=== PATIENT | female | born 1960 | race Caucasian/White ===

== ENCOUNTER 2024-04-26 15:27 | Outpatient (AMB) | payer OTHER, SELFPAY ==
--- NOTE | 2024-04-26 15:28 | MHC.OFFWIV ---
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 While every effort has been made to ensure accuracy, oil plant operator errors may have been included. The patient is a 63 year old female who presents to the clinic today with black spot in her vision on the left intermittently for the last month without pain with vision changes. 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 [facility] Social History Patient Tobacco Use Status: Former Tobacco user Review of Systems Const All systems reviewed & are unremarkable except as noted in HPI and below Physical Exam Vital Signs: Last Vital Signs Pulse 84 04/26/24 15:29 BP 124/86 04/26/24 15:29 Pulse Ox 98 04/26/24 15:29 Oxygen Delivery Method Room Air 04/26/24 15:29 BMI result Body Mass Index 36.9 Const General: cooperative, healthy appearing, comfortable, no acute distress and well developed Orientation/consciousness: patient oriented x3 Limitations: no limitations Eyes General: appearance normal, both eyes and all related structures Alignment and Position: alignment normal Periorbital: periorbital findings normal Eyelids: Yes eyelids normal Conjunctivae: conjunctivae normal Sclerae: sclerae normal Corneas: corneas normal Pupils: Equal, round and reactive pupils present EOM: EOMs intact bilaterally Direct Ophthalmoscopy: normal light reflex, no photophobia and no papilledema Resp Effort & Inspection: normal respiratory effort and able to speak in complete sentences Neuro General: patient oriented x3 Cranial nerves: Yes Equal, round and reactive pupils present Assessment & Plan Assessment & Plan (1) Vision changes: Code(s): H53.9 - Unspecified visual disturbance Plan: Gradual symptoms intermittent for the past month, with vision changes, but no his findings and physical examination. Advised Ophthalmology evaluation. Numbers provided to patient for self referral. Patient reports that she will contact the office it, or 1st thing in the morning. Advised follow up with worsening symptoms or failure to resolve. Plan See above for full details and plan. Coding Level of Care Code Est Pt Level 3 (02851) Diagnoses Vision changes H53.9 CPT Codes Vision Screening - Vision Screenin - Vision Screening ([id number]) Vision Screening Right Eye: 20/20 Left Eye: 20/50 Bilateral: 20/20 27831 - Vision Screening
[2024-04-26 15:29] VITALS: BP 124/86; PULSE 84; O2SAT 98; BMI 36.9
== END 2024-04-26 16:03 | disposition home or self-care (01) ==
PROVIDERS: Visit Provider Registered Nurse
DX: H53.9 Unspecified visual disturbance (principal)

== ENCOUNTER → 2024-04-26 15:27 | Outpatient (BNVA) | payer OTHER, SELFPAY | PROVIDERS: Visit Provider Registered Nurse | DX: H53.9 Unspecified visual disturbance (principal) | CPT/HCPCS: 99212 ==